=== PATIENT | male | born 1945 | race Caucasian/White ===

== ENCOUNTER → 2021-04-24 | Outpatient (CLI) | payer BC ==
[~2021-04-24] MED LIST: ASPIR 8181 MG PO; CORDARONE 200M200 MG PO; GLUCOPHAGE 500500 MG PO; HYDROCHLOROTHIA25 MG PO; LEVOTHYROXINE50 MCG PO; LISINOPRIL20 MG PO; LOPRESSOR50 MG PO; NEURONTIN 300300 MG PO; NORVASC 5 MG TAB5 MG PO; OXYCODONE HCL10 MG PO; XARELTO20 MG PO; ZYLOPRIM 100 M100 MG PO
== END ==
LOC: KOH-I 09:02 → ECHO 09:02 → KOH-I 11:00
DX: R14.0 Abdominal distension (gaseous) (principal); K74.60 Unspecified cirrhosis of liver; K76.6 Portal hypertension; R18.8 Other ascites
CPT/HCPCS: ECHO; 76700; 93306

== ENCOUNTER → 2021-05-14 | Outpatient (CLI) | payer BC ==
[~2021-05-14] VITALS: Ht 167.6 cm; Wt 97.5 kg
[2021-05-14 10:17] LABS: HEMOGLOBIN 9.7 gm/dl (14.0-17.5); RED BLOOD COUNT 3.72 M/UL (4.20-5.50); WHITE BLOOD COUNT 7.9 K/UL (4.5-11.0)
[2021-05-14 14:38] LABS: BODY FLUID SOURCE ASCITES
[2021-05-14 14:39] LABS: MONONUCLEAR CELLS 68 (75-100); POLYMORPHONUCLEAR % 32 (0-25); RBC (MANUAL) 99; WBC (MANUAL) 156
[2021-05-15 09:13] LABS: ALPHA-1-ANTITRYPSIN, SERUM 180 mg/dL (101-187)
[2021-05-15 12:13] LABS: HBSAG SCREEN Negative (Negative); HEP A AB, IGM Negative (Negative); HEP B CORE AB, IGM Negative (Negative); HEP C VIRUS AB <0.1 (0.0-0.9)
[2021-05-15 14:14] LABS: MITOCHONDRIAL (M2) ANTIBODY <20.0 Units (0.0-20.0)
== END ==
LOC: OPSV 09:02
PROVIDERS: Internal Medicine Gastroenterology
DX: K74.60 Unspecified cirrhosis of liver (principal); R18.8 Other ascites
CPT/HCPCS: 36415; 80048; 80074; 80076; 82103; 82728; 83540; 83550; 84157; 85027; 86038; 87205; 89051; 96365; P9047

== ENCOUNTER → 2021-05-21 | Outpatient (CLI) | payer MEDICARE | LOC: OPSV 10:00 | PROVIDERS: Internal Medicine Gastroenterology | DX: K74.60 Unspecified cirrhosis of liver (principal); R18.8 Other ascites; N18.9 Chronic kidney disease, unspecified | CPT/HCPCS: 36415; 80048 ==

== ENCOUNTER → 2021-05-28 | Outpatient (CLI) | payer MEDICARE ==
[~2021-05-28] VITALS: Ht 167.6 cm; Wt 97.5 kg
== END ==
LOC: OPSV 09:53
PROVIDERS: Internal Medicine Gastroenterology
DX: K75.81 Nonalcoholic steatohepatitis (NASH) (principal); K74.60 Unspecified cirrhosis of liver; R18.8 Other ascites; Z53.8 Procedure and treatment not carried out for other reasons; K44.9 Diaphragmatic hernia without obstruction or gangrene
CPT/HCPCS: 36415; 80048; C1729; P9047

== ENCOUNTER 2021-06-04 23:40 | Inpatient (IN) | payer MEDICARE, OTHER ==
[~2021-06-04] VITALS: Ht 167.6 cm; Wt 94.8 kg
[2021-06-05 00:42] LABS: HEMOGLOBIN 8.9 gm/dl (14.0-17.5); RED BLOOD COUNT 3.33 M/UL (4.20-5.50); WHITE BLOOD COUNT 11.5 K/UL (4.5-11.0)
[2021-06-05 01:20] LABS: BUN/CREATININE RATIO 25 (0-10)
[2021-06-05] MEDS ORDERED: AMIODARONE HCL200 MG PO (08:28)
[2021-06-05] MEDS ORDERED: ZESTRIL20 MG PO (08:28)
[2021-06-05] MEDS ORDERED: ELIQUIS 5 MG TAB5 MG PO (08:28)
[2021-06-05] MEDS ORDERED: PROTONIX 40 MG40 M1 PO (08:29)
[2021-06-05] MEDS ORDERED: PREDNISONE 20 M20 MG PO (08:29)
[2021-06-05] MEDS ORDERED: NORVASC10 MG PO (08:30)
[2021-06-05] MEDS ORDERED: LEVOTHYROXINE88 MC1 PO (08:30)
--- NOTE | 2021-06-05 09:10 | NUR ---
DR GIBBS MADE AWARE OF PT 5 MG ELIQUIS BID TAKEN LASTNIGHT LEROY WAS CALLED BUT DID NOT ANSWER WILL MAKE HIM AWARE OF ELIQUIS BEING TAKEN BID
[2021-06-06 10:49] LABS: HEMOGLOBIN 8.3 gm/dl (14.0-17.5); RED BLOOD COUNT 3.08 M/UL (4.20-5.50)
[2021-06-06 11:00] LABS: WHITE BLOOD COUNT 7.3 K/UL (4.5-11.0)
[2021-06-07 08:29] LABS: HEMOGLOBIN 8.1 gm/dl (14.0-17.5); RED BLOOD COUNT 3.02 M/UL (4.20-5.50); WHITE BLOOD COUNT 6.3 K/UL (4.5-11.0)
[2021-06-07 12:23] LABS: HEMOGLOBIN 7.5 gm/dl (14.0-17.5)
[2021-06-08 06:39] LABS: WHITE BLOOD COUNT 5.8 K/UL (4.5-11.0)
[2021-06-08 06:46] LABS: HEMOGLOBIN 10.2 gm/dl (14.0-17.5); RED BLOOD COUNT 3.7 M/UL (4.20-5.50)
[2021-06-08] MEDS ORDERED: XIFAXAN 550 MG550 MG PO (13:58)
[2021-06-08] MEDS ORDERED: CHRONULAC20 GM/30 M PO (13:58)
== END 2021-06-08 16:25 | disposition home or self-care (01) | DRG 433 ==
LOC: ER1 23:40 → CDU 06-05 02:39 → MED SURG 4 06-05 07:24
PROVIDERS: Emergency Medicine; Internal Medicine; Internal Medicine Gastroenterology; ADMIT Internal Medicine
PROC: 0W3P8ZZ Control Bleeding in Gastrointestinal Tract, Via Natural or Artificial Opening Endoscopic (ICD-10-PCS; 2021-06-07)
PROC: 0W9G3ZZ Drainage of Peritoneal Cavity, Percutaneous Approach (ICD-10-PCS; 2021-06-07)
PROC: 0DB78ZZ Excision of Stomach, Pylorus, Via Natural or Artificial Opening Endoscopic (ICD-10-PCS; principal; 2021-06-07 10:22)
DX: K74.60 Unspecified cirrhosis of liver (principal); R18.8 Other ascites; E72.20 Disorder of urea cycle metabolism, unspecified; I85.00 Esophageal varices without bleeding; K91.840 Postprocedural hemorrhage of a digestive system organ or structure following a digestive system procedure; K76.6 Portal hypertension; N17.9 Acute kidney failure, unspecified; Z20.822 Contact with and (suspected) exposure to COVID-19; E87.5 Hyperkalemia; I12.9 Hypertensive chronic kidney disease with stage 1 through stage 4 chronic kidney disease, or unspecified chronic kidney disease; K31.7 Polyp of stomach and duodenum; Y83.8 Other surgical procedures as the cause of abnormal reaction of the patient, or of later complication, without mention of misadventure at the time of the procedure; N18.9 Chronic kidney disease, unspecified; D63.1 Anemia in chronic kidney disease; E11.22 Type 2 diabetes mellitus with diabetic chronic kidney disease; G89.29 Other chronic pain; I48.91 Unspecified atrial fibrillation; E03.9 Hypothyroidism, unspecified; K75.81 Nonalcoholic steatohepatitis (NASH); K31.89 Other diseases of stomach and duodenum; F11.90 Opioid use, unspecified, uncomplicated; F17.210 Nicotine dependence, cigarettes, uncomplicated; K42.9 Umbilical hernia without obstruction or gangrene; Z79.01 Long term (current) use of anticoagulants; Z72.89 Other problems related to lifestyle
CPT/HCPCS: 36415; 36430; 71045; 80053; 81001; 82140; 82550; 82553; 82962; 83735; 83874; 83880; 84484; 85014; 85018; 85025; 85610; 85730; 86140; 86850; 86900; 86901; 86920; 87040; 87086; 93005; 99285; C1729; C1889; J0171; J2250; J3010; J7040; J7050; P9016; P9047; U0002

== ENCOUNTER → 2021-06-22 | Outpatient (CLI) | payer MEDICARE ==
[~2021-06-22] VITALS: Ht 167.6 cm; Wt 97.5 kg
[~2021-06-22] MED LIST changes: +AMIODARONE HCL200 MG PO; +CHRONULAC20 GM/30 M PO; +ELIQUIS 5 MG TAB5 MG PO; +LEVOTHYROXINE88 MC1 PO; +NORVASC10 MG PO; +PREDNISONE 20 M20 MG PO; +PROTONIX 40 MG40 M1 PO; +XIFAXAN 550 MG550 MG PO; +ZESTRIL20 MG PO
== END ==
LOC: OPSV 11:44
PROVIDERS: Internal Medicine Gastroenterology
DX: K74.60 Unspecified cirrhosis of liver (principal); K75.81 Nonalcoholic steatohepatitis (NASH); R18.8 Other ascites; I10 Essential (primary) hypertension; E03.9 Hypothyroidism, unspecified; E66.9 Obesity, unspecified; Z68.33 Body mass index [BMI] 33.0-33.9, adult; Z88.8 Allergy status to other drugs, medicaments and biological substances; Z79.01 Long term (current) use of anticoagulants; Z79.899 Other long term (current) drug therapy
CPT/HCPCS: 36415; 80048; 96365; C1729; P9047

== ENCOUNTER → 2021-07-06 | Outpatient (CLI) | payer MEDICARE ==
[~2021-07-06] VITALS: Ht 167.6 cm; Wt 97.5 kg
== END ==
LOC: OPSV 11:00
PROVIDERS: Internal Medicine Gastroenterology
DX: K75.81 Nonalcoholic steatohepatitis (NASH) (principal); R18.8 Other ascites; N18.9 Chronic kidney disease, unspecified
CPT/HCPCS: 36415; 80048; 96365; P9047

== ENCOUNTER → 2021-08-03 | Outpatient (CLI) | payer MEDICARE ==
[~2021-08-03] VITALS: Ht 167.6 cm; Wt 97.5 kg
== END ==
LOC: OPSV 10:57
PROVIDERS: Internal Medicine Gastroenterology
DX: K74.60 Unspecified cirrhosis of liver (principal); R18.8 Other ascites
CPT/HCPCS: 36415; 80048; 96365; P9047

== ENCOUNTER → 2021-08-17 | Outpatient (CLI) | payer MEDICARE | LOC: OPSV 11:00 | PROVIDERS: Internal Medicine Gastroenterology | DX: K74.69 Other cirrhosis of liver (principal); R18.8 Other ascites | CPT/HCPCS: 36415; 80048; 96365; P9047 ==

== ENCOUNTER → 2021-09-05 | Outpatient (CLI) | payer MEDICARE ==
[~2021-09-05] VITALS: Ht 167.6 cm; Wt 97.5 kg
== END ==
LOC: OPSV 10:00
DX: R18.8 Other ascites (principal); K74.60 Unspecified cirrhosis of liver; K75.81 Nonalcoholic steatohepatitis (NASH)
CPT/HCPCS: 96365; C1729; P9047

== ENCOUNTER → 2021-09-12 | Outpatient (CLI) | payer MEDICARE ==
[~2021-09-12] VITALS: Ht 167.6 cm; Wt 97.5 kg
== END ==
LOC: OPSV 10:00
DX: K74.69 Other cirrhosis of liver (principal); R18.8 Other ascites; K75.89 Other specified inflammatory liver diseases; N18.9 Chronic kidney disease, unspecified
CPT/HCPCS: 96365; C1729; P9047

== ENCOUNTER → 2021-09-19 | Outpatient (CLI) | payer MEDICARE ==
[~2021-09-19] VITALS: Ht 167.6 cm; Wt 97.5 kg
== END ==
LOC: OPSV 10:00
PROVIDERS: Internal Medicine Gastroenterology
DX: R18.8 Other ascites (principal); K74.60 Unspecified cirrhosis of liver; K75.81 Nonalcoholic steatohepatitis (NASH)
CPT/HCPCS: 36415; 80048; 96365; C1729; J2001; P9047

== ENCOUNTER → 2021-09-26 | Outpatient (CLI) | payer MEDICARE ==
[~2021-09-26] VITALS: Ht 167.6 cm; Wt 97.5 kg
== END ==
LOC: OPSV 09:57
DX: R18.8 Other ascites (principal); K74.60 Unspecified cirrhosis of liver
CPT/HCPCS: 96365; C1729; P9047

== ENCOUNTER → 2021-09-27 | Outpatient (CLI) | payer MEDICARE | LOC: US 09:10 | DX: R18.8 Other ascites (principal); R94.5 Abnormal results of liver function studies | CPT/HCPCS: 76705 ==

== ENCOUNTER → 2021-10-03 | Outpatient (CLI) | payer MEDICARE ==
[~2021-10-03] VITALS: Ht 167.6 cm; Wt 97.5 kg
== END | disposition home or self-care (01) ==
LOC: OPSV 09:56
DX: R18.8 Other ascites (principal); K74.69 Other cirrhosis of liver; N18.9 Chronic kidney disease, unspecified; Z79.899 Other long term (current) drug therapy; Z79.01 Long term (current) use of anticoagulants
CPT/HCPCS: 96365; P9047

== ENCOUNTER → 2021-10-10 | Outpatient (CLI) | payer MEDICARE ==
[~2021-10-10] VITALS: Ht 167.6 cm; Wt 97.5 kg
== END ==
LOC: OPSV 10:00
DX: K74.60 Unspecified cirrhosis of liver (principal); R18.8 Other ascites
CPT/HCPCS: 96365; C1729; P9047

== ENCOUNTER → 2021-10-17 | Outpatient (CLI) | payer MEDICARE ==
[~2021-10-17] VITALS: Ht 167.6 cm; Wt 97.5 kg
== END | disposition home or self-care (01) ==
LOC: OPSV 09:50
DX: K74.60 Unspecified cirrhosis of liver (principal); R18.8 Other ascites
CPT/HCPCS: 96365; C1729; P9047

== ENCOUNTER → 2021-10-24 | Outpatient (CLI) | payer MEDICARE ==
[~2021-10-24] VITALS: Ht 167.6 cm; Wt 97.5 kg
== END ==
LOC: OPSV 10:00
DX: K74.60 Unspecified cirrhosis of liver (principal); K75.81 Nonalcoholic steatohepatitis (NASH); R18.8 Other ascites
CPT/HCPCS: 96365; J2001; P9047

== ENCOUNTER → 2021-11-14 | Outpatient (CLI) | payer MEDICARE ==
[~2021-11-14] VITALS: Ht 167.6 cm; Wt 97.5 kg
== END ==
LOC: OPSV 10:00
DX: R18.8 Other ascites (principal); K74.60 Unspecified cirrhosis of liver
CPT/HCPCS: 96365; C1729; J2001; P9047

== ENCOUNTER 2021-11-26 09:35 | Observation (INO) | payer MEDICARE ==
[~2021-11-26] VITALS: Ht 167.6 cm; Wt 78.0 kg
[~2021-11-26 09:35] MED LIST changes: +BUMETANIDE1 MG PO; +CARVEDILOL6.25 MG PO; +ELIQUIS5 MG PO; +LACTULOSE10 GM/15 M PO; -LEVOTHYROXINE88 MC1 PO; +LEVOTHYROXINE88 MCG PO; -NORVASC10 MG PO; +NORVASC5 MG PO
[2021-11-26 10:18] LABS: HEMOGLOBIN 12.2 gm/dl (14.0-17.5); RED BLOOD COUNT 4.03 M/UL (4.20-5.50); WHITE BLOOD COUNT 10.3 K/UL (4.5-11.0)
[2021-11-26] MEDS ORDERED: SPIRIVA RESPIMAT4 GM INH (13:10)
[2021-11-26] MEDS ORDERED: TRAZODONE HCL50 MG PO (20:08)
[2021-11-26] MEDS ORDERED: HYDROCODON-ACE1 EAC4 PO (20:09)
[2021-11-27 03:40] LABS: HEMOGLOBIN 11.5 gm/dl (14.0-17.5); RED BLOOD COUNT 3.84 M/UL (4.20-5.50); WHITE BLOOD COUNT 10.5 K/UL (4.5-11.0)
[2021-11-28 03:18] LABS: HEMOGLOBIN 11.5 gm/dl (14.0-17.5); RED BLOOD COUNT 3.79 M/UL (4.20-5.50); WHITE BLOOD COUNT 10.5 K/UL (4.5-11.0)
== END 2021-11-28 20:25 | disposition home health service (06) ==
LOC: ER1 09:35 → M/S 12:13 → CDU 12:13 → PROG CARE 14:47 → M/S 11-27 00:46
PROVIDERS: Internal Medicine; Internal Medicine Nephrology; Nurse Practitioner; Physician Assistant; ADMIT Internal Medicine
DX: K74.60 Unspecified cirrhosis of liver (principal); R18.8 Other ascites; K80.20 Calculus of gallbladder without cholecystitis without obstruction; I44.0 Atrioventricular block, first degree; E78.5 Hyperlipidemia, unspecified; E03.9 Hypothyroidism, unspecified; N18.30 Chronic kidney disease, stage 3 unspecified; E11.42 Type 2 diabetes mellitus with diabetic polyneuropathy; E11.22 Type 2 diabetes mellitus with diabetic chronic kidney disease; E87.1 Hypo-osmolality and hyponatremia; I48.0 Paroxysmal atrial fibrillation; E88.09 Other disorders of plasma-protein metabolism, not elsewhere classified; K72.10 Chronic hepatic failure without coma; Z93.3 Colostomy status; Z79.01 Long term (current) use of anticoagulants; Z20.822 Contact with and (suspected) exposure to COVID-19
CPT/HCPCS: 0240U; 36415; 51702; 80048; 80053; 80076; 81001; 82150; 82436; 82962; 83690; 83735; 83880; 83935; 84133; 84300; 85025; 85027; 85610; 85730; 93005; 94640; 94664; 94760; 96365; 96366; 96374; 96375; 96376; 97110-GP-CQ; 97162; 97165; 97530; 99285; C1729; G0378; J0696; J2270; J2405; J2543; P9047